=== PATIENT | female | born 1975 | race African-American/Black ===

== ENCOUNTER 2017-10-03 09:04 | Emergency (ER) | payer MEDICARE, MEDICAID ==
[~2017-10-03] VITALS: Ht 165.1 cm; Wt 73.0 kg
[2017-10-03] MEDS ORDERED: TRAMADOL 50MG TABLET PO ONE (10:30)
[2017-10-03 11:05] VITALS: BP 115/77
== END 2017-10-03 11:38 | disposition home or self-care (01) ==
LOC: ER 10:18
DX: R51 Headache (principal); F17.200 Nicotine dependence, unspecified, uncomplicated; Z86.73 Personal history of transient ischemic attack (TIA), and cerebral infarction without residual deficits
CPT/HCPCS: 99283